=== PATIENT | male | born 1955 | race Caucasian/White ===

== ENCOUNTER → 2019-07-14 | Day surgery (SDC) | payer OTHER ==
[2019-07-13 09:22] LABS: BASOPHILS # (AUTO) 0.1 (0.0-0.1); BASOPHILS % 0.8 % (0.0-1.0); EOSINOPHILS # (AUTO) 0.2 (0.0-0.4); EOSINOPHILS % 3.2 % (0.0-6.0); HEMOGLOBIN 15.6 g/dL (14.0-18.0); LYMPHOCYTES % 27.5 % (18.0-39.1); MEAN CORPUSCULAR HGB CONC 31.8 g/dL (31-35); MEAN CORPUSCULAR VOLUME 78.7 fL (81-99); MONOCYTES # (AUTO) 0.7 (0.2-0.8); MONOCYTES % 9.6 % (4.4-11.3); NEUTROPHILS # (AUTO) 4.2 (2.1-6.9); NEUTROPHILS % 58.6 % (38.7-80.0); PLATELET COUNT 185 x10e3/uL (140-360); RED BLOOD COUNT 6.23 x10e6/uL (4.3-5.7); RED CELL DISTRIBUTION WIDTH 19.7 % (11.7-14.4)
--- NOTE | 2019-07-13 09:36 | Diagnostic Imaging Report ---
EXAMINATION: CHEST 2 VIEWS INDICATION: Pre-operative COMPARISON: None FINDINGS: LINES/TUBES:None LUNGS:The lungs are hyperinflated. No focal consolidation or pulmonary edema. PLEURA:No pleural effusion or pneumothorax. MEDIASTINUM:The cardiomediastinal silhouette appears normal in size and shape. Atherosclerotic calcifications of the thoracic aorta. BONES/SOFT TISSUES:No acute osseous injury. ABDOMEN:No free air under the diaphragm. IMPRESSION: Hyperinflated lungs. No focal pneumonia or pulmonary edema. Signed by: Rob Sanchez MD on 07/13/2019 9:32 AM
[2019-07-13 09:43] LABS: ANION GAP 9.9 mmol/L (8-16); BLOOD UREA NITROGEN 15 mg/dL (7-26); BUN/CREATININE RATIO 16 (6-25); CALCIUM 9.4 mg/dL (8.4-10.2); CARBON DIOXIDE 26 mmol/L (22-29); CHLORIDE 106 mmol/L (98-107); CREATININE, SERUM 0.96 mg/dL (0.72-1.25); EST GLOMERULAR FILTRATION RATE > 60 ML/MIN (60-); GLUCOSE 84 mg/dL (74-118); POTASSIUM 3.9 mmol/L (3.5-5.1); SODIUM 138 mmol/L (136-145)
[~2019-07-14] MED LIST: ACETAMINOPHEN 1000 MG/100 ML IV ONE; ASPIR 8181 MG PO; BUPIVACAINE HCL 0.5% INJ 30 ML VIAL INJ ONE; CEFAZOLIN SOD 1 GM/NS 50ML 50 ML IV ONE; CRESTOR10 MG PO; DEXAMETHASONE SOD PHOS INJ 4 MG/ML VIAL ONE; FENTANYL CITRATE/PF 100MCG/2 ML INJ ONE; HYDROCHLOROTHIA25 MG PO; LIDOCAINE HCL 2% LOCAL INJ 5 ML SDV VIAL INJ ONE; MIDAZOLAM HCL 2 MG/2 ML VIAL ONE; ONDANSETRON HCL INJ 2MG/ML 2ML 2 MG/ML VIAL ONE; PANTOPRAZOLE SO40 MG PO; PROPOFOL IV EMULSION 10 MG/ML 20 ML VIAL ONE; SEVOFLURANE INHAL SOLN 250 ML PEN BTL ONE; VERAPAMIL ER120 MG PO; XARELTO10 MG PO
[2019-07-14 08:50] VITALS: BP 123/84
--- NOTE | 2019-07-14 12:37 | Operative Report ---
DATE OF PROCEDURE: 07/14/2019 SURGEON: Swapnil Almodovar DPM PREOPERATIVE DIAGNOSES: Left hallux valgus, left hallux interphalangeal, left 2nd, 3rd, and 4th digit hammertoe. PLANNED PROCEDURES: 1. Left Silver bunionectomy. 2. Left Richard osteotomy. 3. Left 2nd digit arthroplasty. 4. Left 3rd and 4th digit tenotomy and capsulotomy. INDUSTRIAL ARTS TEACHER: None. ANESTHESIA: General with a postoperative block consisting of 20 mL of 0.5% Marcaine plain mixed with 1 mL of dexamethasone phosphate. HEMOSTASIS: Pneumatic thigh tourniquet set at 350 mmHg for a total time of approximately 50 minutes. MATERIALS: 1. One size 10 x 10 [employer] staple Nitinol implant. 2. One Phalinx implant, size large, 0 degrees, one 1.1 mm K-wire, 2-0 Vicryl, 3-0 Vicryl, 4-0 Prolene. ESTIMATED BLOOD LOSS: Less than 10 mL. PATHOLOGY: None. PROCEDURE NOTE: The patient was seen in the preoperative waiting room, where the correct procedure and site was identified. The patient was brought into the operating room and placed in the operating table in the supine position. General anesthesia was initiated. At this time, a well-padded pneumatic tourniquet was placed about the patient's left thigh. The left foot, ankle, and leg was then scrubbed, prepped, and draped in the usual aseptic manner. The left foot, ankle, and leg was exsanguinated with an Esmarch bandage and the pneumatic thigh tourniquet was inflated to 350 mmHg for a total time of approximately 50 minutes. Attention was directed to the dorsal medial aspect of the patient's left foot, where a 6 cm curvilinear incision was made directly over the 1st metatarsophalangeal joint, extending to the medial aspect of the interphalangeal joint of the hallux. The incision was carried through the subcutaneous tissue them from deep or underlying structures. All vital and neurovascular structures were identified, retracted medially and laterally, and all bleeders were cauterized or ligated as deemed necessary. At this time, it should be noted that a previous scar tissue from previous surgeries were noted. Utilizing a #15 blade, the incision was carried through to the 1st interspace while utilizing curved Metzenbaum scissors. A full lateral release was performed consisting of a deep transverse metatarsal ligament, lateral collateral ligament as well as the fibular sesamoidal ligament. Next, attention was directed back to the 1st metatarsophalangeal joint, where an inverted L-capsulotomy was performed to allow for good visualization of the 1st metatarsal head. It should be noted that a previous screw from previous bunionectomy procedure was encountered and this was removed. It should also be noted that there was some degenerative changes to the 1st metatarsophalangeal joint. Utilizing a sagittal saw, the medial eminence was resected and passed off to the back table. The hallux was then put through range of motion and found to be functioning in a more proper anatomic alignment. Next, the extensor hallucis longus tendon was lengthened and reapproximated utilizing 3-0 Vicryl to allow for adequate range of motion to the 1st metatarsophalangeal joint. The wound was then copiously irrigated with sterile saline. Next, utilizing 2-0 Vicryl, the capsule was reapproximated with simple interrupted sutures. Next, the deep tissue was reapproximated utilizing 3-0 Vicryl. The distal aspect of the incision site was then open to allow for good visualization of the proximal phalanx of the hallux as well as the interphalangeal joint. Utilizing intraoperative fluoroscopy to determine the placement of the osteotomy. Next, utilizing a sagittal saw, a distal cut was made in the distal aspect of the proximal phalanx leaving the lateral hinge intact, which was parallel to the articular surface of the articular surface. Next, a wedge osteotomy was performed with the apex lateral and the wedge medial. The wedge was resected and passed off to the back table. The osteotomy site was then feathered to allow for proper closure. Once the phalanx was closed utilizing manufacture protocol, the phalanx was reapproximated utilizing a 10 x 10 mm [employer] staple and this was confirmed via intraoperative fluoroscopy. The wound was then copiously irrigated with sterile saline. Capsule and deep tissue were reapproximated with 3-0 Vicryl and the skin was closed using a running interlocking stitch with 4-0 Prolene. Attention was directed to the dorsal aspect of the proximal interphalangeal joint of the left 2nd digit. There was noted to be a hyperkeratotic lesion and this was excised utilizing 2 converging semi-elliptical incisions, measuring approximately 1.5 cm in length. The incision was carried down to the level of proximal interphalangeal joint, where a tenotomy and capsulotomy was performed to allow for good visualization of the joint. Utilizing a sagittal saw, the head of the proximal phalanx was resected and passed off to the back table. Next, per manufacture protocol, a K-wire was placed through the middle and distal phalanx, then hand drill to the laser line per the [facility] protocol and as well as the distal aspect of the joint. The implant was placed distally and then impacted onto the proximal phalanx. This was confirmed via intraoperative fluoroscopy. The K-wire was then pushed through the proximal phalanx into the metatarsophalangeal joint. Again confirmed via intraoperative fluoroscopy. The wound was then copiously irrigated with sterile saline. Capsule and deep tissue were reapproximated with 3-0 Vicryl, subcutaneous tissue with 3-0 Vicryl, and the skin was closed using simple interrupted sutures with 4-0 Prolene. Attention was then directed to the 3rd and 4th metatarsophalangeal joint, where through a 1 cm incision, a tenotomy and capsulotomy of the extensor tendon and the corresponding metatarsophalangeal joints were performed to allow for release of the dorsal contracture. This was noted. The wound was then copiously irrigated with sterile saline. Capsule and deep tissue were reapproximated with 3-0 Vicryl, subcutaneous tissue with 3-0 Vicryl, and the skin was closed using simple interrupted sutures with 4-0 Prolene. Incision site was then dressed with Adaptic, 4x4s, Kerlix, Refugio wrap, and a postop shoe. The patient tolerated the procedure and anesthesia well. The patient was transferred to the postoperative recovery unit with vital signs stable and vascular status intact. The patient was monitored there for a short period or time before being sent home with the following written and oral instructions. 1. Keep the dressing clean, dry, and intact. 2. The patient is to remain partial heel touch weightbearing to avoid excessive ambulation until being seen in the office. 3. The patient is given office number and instructed to contact us if any problems arise. Swapnil Almodovar DPM MAF/MODL /[id number]
== END | disposition home or self-care (01) ==
LOC: OR 05:12
PROVIDERS: ATTEND Podiatrist Foot & Ankle Surgery
DX: M20.12 Hallux valgus (acquired), left foot (principal); M20.5X2 Other deformities of toe(s) (acquired), left foot; M20.42 Other hammer toe(s) (acquired), left foot; L98.8 Other specified disorders of the skin and subcutaneous tissue; M24.575 Contracture, left foot; G47.33 Obstructive sleep apnea (adult) (pediatric); I10 Essential (primary) hypertension; I45.10 Unspecified right bundle-branch block; K21.9 Gastro-esophageal reflux disease without esophagitis; E78.5 Hyperlipidemia, unspecified; Z01.810 Encounter for preprocedural cardiovascular examination; Z01.818 Encounter for other preprocedural examination; Z79.02 Long term (current) use of antithrombotics/antiplatelets; Z79.82 Long term (current) use of aspirin; Z86.718 Personal history of other venous thrombosis and embolism
CPT/HCPCS: 28270 ×2; 28285; 28299; 36415; 71046; 80048; 85025; 93005; C1713 ×2; J0131; J0690; J1100; J2001; J2250; J2405; J2704; J3010

== ENCOUNTER → 2020-07-26 | Day surgery (SDC) | payer OTHER ==
[2020-07-24 10:45] LABS: BASOPHILS % 0.6 % (0.0-1.0); EOSINOPHILS # (AUTO) 0.1 (0.0-0.4); EOSINOPHILS % 1.2 % (0.0-6.0); HEMATOCRIT 49.4 % (38.2-49.6); HEMOGLOBIN 15.9 g/dL (14.0-18.0); LYMPHOCYTES # (AUTO) 2.7 (1.0-3.2); LYMPHOCYTES % 39.7 % (18.0-39.1); MEAN CORPUSCULAR HEMOGLOBIN 26.4 pg (28-32); MEAN CORPUSCULAR HGB CONC 32.2 g/dL (31-35); MEAN CORPUSCULAR VOLUME 81.9 fL (81-99); MONOCYTES # (AUTO) 0.7 (0.2-0.8); NEUTROPHILS # (AUTO) 3.3 (2.1-6.9); NEUTROPHILS % 48.2 % (38.7-80.0); PLATELET COUNT 204 x10e3/uL (140-360); RED BLOOD COUNT 6.03 x10e6/uL (4.3-5.7)
[~2020-07-26] MED LIST changes: -ACETAMINOPHEN 1000 MG/100 ML IV ONE; -BUPIVACAINE HCL 0.5% INJ 30 ML VIAL INJ ONE; -CEFAZOLIN SOD 1 GM/NS 50ML 50 ML IV ONE; -DEXAMETHASONE SOD PHOS INJ 4 MG/ML VIAL ONE; -FENTANYL CITRATE/PF 100MCG/2 ML INJ ONE; -ONDANSETRON HCL INJ 2MG/ML 2ML 2 MG/ML VIAL ONE; -SEVOFLURANE INHAL SOLN 250 ML PEN BTL ONE
[2020-07-26 09:50] VITALS: BP 144/86
== END | disposition home or self-care (01) ==
LOC: OR 06:29
PROVIDERS: ATTEND Internal Medicine Gastroenterology
DX: K29.50 Unspecified chronic gastritis without bleeding (principal); K21.00 Gastro-esophageal reflux disease with esophagitis, without bleeding; K44.9 Diaphragmatic hernia without obstruction or gangrene; Z71.3 Dietary counseling and surveillance; G47.33 Obstructive sleep apnea (adult) (pediatric); E66.9 Obesity, unspecified; I10 Essential (primary) hypertension; E78.5 Hyperlipidemia, unspecified; Z01.810 Encounter for preprocedural cardiovascular examination; Z01.812 Encounter for preprocedural laboratory examination; Z20.822 Contact with and (suspected) exposure to COVID-19; Z79.02 Long term (current) use of antithrombotics/antiplatelets; Z79.82 Long term (current) use of aspirin; Z68.34 Body mass index [BMI] 34.0-34.9, adult; Z86.718 Personal history of other venous thrombosis and embolism
CPT/HCPCS: 36415; 43239; 85025; 93005; J2001; J2250; J2704; U0002

== ENCOUNTER → 2023-11-17 | Day surgery (SDC) | payer MEDICARE, OTHER ==
[2023-10-30 09:05] LABS: BASOPHILS # (AUTO) 0.1 (0.0-0.1); BASOPHILS % 0.5 % (0.0-1.0); EOSINOPHILS # (AUTO) 0.1 (0.0-0.4); EOSINOPHILS % 0.5 % (0.0-6.0); HEMATOCRIT 37.3 % (38.2-49.6); LYMPHOCYTES # (AUTO) 4.3 (1.0-3.2); LYMPHOCYTES % 39.3 % (18.0-39.1); MEAN CORPUSCULAR HEMOGLOBIN 21.2 pg (28-32); MEAN CORPUSCULAR HGB CONC 29.5 g/dL (31-35); MONOCYTES # (AUTO) 0.7 (0.2-0.8); MONOCYTES % 6.6 % (4.4-11.3); NEUTROPHILS # (AUTO) 5.8 (2.1-6.9); NEUTROPHILS % 52.8 % (38.7-80.0); PLATELET COUNT 179 x10e3/uL (140-360); RED BLOOD COUNT 5.18 x10e6/uL (4.3-5.7); WHITE BLOOD COUNT 11.03 x10e3/uL (4.8-10.8)
[~2023-11-17] MED LIST changes: +B-121000 MC2; +FENTANYL CITRATE/PF 100MCG/2 ML INJ ONE; +GLYCOPYRROLATE INJ 0.2 MG/ML VIAL ONE; -MIDAZOLAM HCL 2 MG/2 ML VIAL ONE; +MULTI-VITAMIN1 EACH PO; +OMEGA 3 FISH O1 EACH PO
[2023-11-17] MEDS: LACTATED RINGER'S 1,000 ML ONE (07:30)
[2023-11-17 11:24] VITALS: BP 109/76; PULSE 67; RESP 16; TEMP 97; O2SAT 98
== END | disposition home or self-care (01) ==
LOC: OR 06:27
PROVIDERS: ATTEND Internal Medicine Gastroenterology
DX: Z12.11 Encounter for screening for malignant neoplasm of colon (principal); D12.4 Benign neoplasm of descending colon; K29.70 Gastritis, unspecified, without bleeding; K31.89 Other diseases of stomach and duodenum; K21.9 Gastro-esophageal reflux disease without esophagitis; K44.9 Diaphragmatic hernia without obstruction or gangrene; K59.00 Constipation, unspecified; K64.8 Other hemorrhoids; D50.9 Iron deficiency anemia, unspecified; I10 Essential (primary) hypertension; E78.5 Hyperlipidemia, unspecified; N40.0 Benign prostatic hyperplasia without lower urinary tract symptoms; D68.9 Coagulation defect, unspecified; M06.9 Rheumatoid arthritis, unspecified; M19.90 Unspecified osteoarthritis, unspecified site; Z01.810 Encounter for preprocedural cardiovascular examination; Z01.812 Encounter for preprocedural laboratory examination; Z79.02 Long term (current) use of antithrombotics/antiplatelets; Z79.82 Long term (current) use of aspirin; Z79.899 Other long term (current) drug therapy; Z68.36 Body mass index [BMI] 36.0-36.9, adult; Z86.718 Personal history of other venous thrombosis and embolism
CPT/HCPCS: 36415; 43239; 43251; 45384; 85025; 88305; 88342; 93005; J2001; J2704; J3010; J7121; 45378